=== PATIENT | female | born 2000 | race Caucasian/White ===

== ENCOUNTER 2023-03-15 19:34 | Emergency (ER) | payer BC, SELFPAY ==
--- NOTE | ~2023-03-15 | XR_ITS ---
EXAM: XR abdomen/kub 1V DATE: 03/15/2023 20:09 HISTORY: nausea, bloating, fatique x 1 month urinary frequency . COMPARISON: None available. FINDINGS: Clear lung bases. Normal bowel gas pattern. No organomegaly. No abnormal abdominal calcifi cation. Regional bones and soft tissues normal for age. IMPRESSION: Normal abdominal radiograph findings. Reviewed, dictated and finalized at location K.
[2023-03-15 19:40] VITALS: BP 129/78; PULSE 108; RESP 16; TEMP 36.6; O2SAT 99
--- NOTE | 2023-03-15 19:53 | ED.GENADULT ---
HPI - General Adult General Chief complaint: Nausea/Vomiting/Diarrhea Stated complaint: nausea fatigue Time Seen by Provider: 03/15/23 19:53 Source: patient Mode of arrival: ambulatory Limitations: no limitations History of Present Illness HPI narrative: 22-year-old female presents with complaint of fatigue, intermittent nausea, abdominal bloating after eating. Symptoms for approximately 1 month. States all foods make her feel bloated. Has not tried any sdya-hvw-fljovhz medications to treat bloating. Denies urinary complaints. Having normal bowel movements. No blood in stools. Having normal periods. Concern for . Patient does not have a primary care physician. Was hoping that she could get a medication prescribed to treat the nausea. 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 States she drinks 6 to 8 shots of espresso daily to keep her awake. pt has decreased food intake due to nausea. no significant weight loss. All systems reviewed and negative except as noted above. Related Data Allergies Allergy/AdvReac Type Severity Reaction Status Date / Time Penicillins Allergy Unknown Verified 03/15/23 19:56 Review of Systems Review of Systems: CONSTITUTIONAL: Denies fever, chills, or sweats. Reports fatigue. EYES: Denies visual changes, redness, or discharge. ENT: Denies rhinorrhea, congestion, sore throat, or otalgia. CARDIOVASCULAR: Denies chest pain, palpitations, or edema. RESPIRATORY: Denies cough or dyspnea. GASTROINTESTINAL: Denies abdominal pain, vomiting, or diarrhea. Reports abdominal bloating, nausea. GENITOURINARY: Denies dysuria or hematuria. SKIN: Denies rash or itching. MUSCULOSKELETAL: Denies back pain, joint pain, or myalgia. NEUROLOGIC: Denies headache, numbness, or weakness. PSYCHIATRIC: Denies anxiety or depression. All other systems reviewed are negative, except as documented in HPI. PMFSH Comments At time of signature, agree with nursing past medical, surgical, social and family history. There is no relevant family history pertinent to the presenting complaint. Exam Narrative: GENERAL: This is a well-nourished, well-developed patient, in no apparent distress. HEAD: normocephalic, atraumatic. EYES: PERRL. Sclera clear/white. Vision is grossly intact. EARS: External ears normal NOSE: External nose normal NECK: Neck supple, non-tender without lymphadenopathy, masses or thyromegaly. CARDIOVASCULAR: Regular rate and rhythm without murmurs, gallops, or rubs. RESPIRATORY: Clear to auscultation. Breath sounds equal bilaterally. No wheezes, rales, or rhonchi. GASTROINTESTINAL: Abdomen soft, non-tender, nondistended. Bowel sounds are active. No hepato-splenomegaly, or palpable masses. No guarding. SKIN: warm, Dry, intact with no suspicious lesions or rash, good texture and turgor. NEURO: awake, alert, and oriented to person, place and time. There were no obvious focal neurologic abnormalities. EXTREMITIES: No joint tenderness, effusion, or edema noted. BACK: No CVA tenderness. Course Course Level of Care: Express Care Visit Vital Signs Vital signs: Vital Signs Temperature 36.6 C 03/15/23 19:40 Pulse Rate 108 H 03/15/23 19:40 Respiratory Rate 16 03/15/23 19:40 Blood Pressure 129/78 03/15/23 19:40 Pulse Oximetry 99 03/15/23 19:40 Oxygen Delivery Room Air 03/15/23 19:40 Temperature 36.6 C 03/15/23 19:40 Pulse Rate 108 H 03/15/23 19:40 Respiratory Rate 16 03/15/23 19:40 Blood Pressure 129/78 03/15/23 19:40 Pulse Oximetry 99 03/15/23 19:40 Oxygen Delivery Room Air 03/15/23 19:40 Reviewed Medical Decision Making MDM Narrative Medical decision making narrative: Patient is aware of diagnosis, understands and agrees to treatment plan. Anticipatory guidance given. Patient agrees to follow-up as directed and is aware of reasons to seek care at the emergency department. Portions of this record may have been created with voice recognition software discussed
[2023-03-15 20:18] LABS: Glucose Point of Care 90 mg/dl (65-105)
== END 2023-03-15 20:40 | disposition home or self-care (01) ==
PROVIDERS: Emergency Provider Nurse Practitioner Family
DX: R14.0 Abdominal distension (gaseous) (principal); N39.0 Urinary tract infection, site not specified
CPT/HCPCS: 74018; 81003; 81025; 82948; 87086; 87088; 99213; G0463

== ENCOUNTER 2024-10-20 10:43 | Emergency (ER) | payer BC, SELFPAY ==
[2024-10-20 11:02] VITALS: BP 128/68; PULSE 106; RESP 16; TEMP 36.6; O2SAT 98
--- NOTE | 2024-10-20 11:03 | ED_ITS ---
HPI - URI/Sore Throat General Chief Complaint: Upper Respiratory Infection Stated Complaint: Poss [place] eye/Sore throat Time Seen by Provider: 10/20/24 11:23 Source: patient and RN notes reviewed Mode of arrival: ambulatory Limitations: no limitations History of Present Illness HPI Narrative: 24-year-old female presents with concern one-week history of sore throat sinus congestion drainage ear pain. Reports she is was inserted drainage the eyes. She denies fevers. Denies drainage from ears MD elicited complaint: sore throat and nasal congestion Related Data Home Medications ?Medication ?Instructions ?Recorded ?Confirmed ?Last Taken ?Type escitalopram oxalate 5 mg tablet mg 10/20/24 Unknown History omeprazole .ROUTE 10/20/24 Unknown History Allergies Allergy/AdvReac Type Severity Reaction Status Date / Time amoxicillin Allergy Unknown Unknown Verified 10/20/24 11:07 Penicillins Allergy Unknown Verified 10/20/24 11:07 Review of Systems Review of Systems: CONSTITUTIONAL: Denies malaise, chills, sweats, or fever. EYES: Denies visual changes, redness. Reports bilateral discharge. ENT: Reports rhinorrhea, congestion, sinus pain, otalgia and sore throat. CARDIOVASCULAR: Denies chest pain, palpitations, or edema. RESPIRATORY: Reports cough. Denies dyspnea. GASTROINTESTINAL: Denies abdominal pain, nausea, vomiting, diarrhea SKIN: Denies rash or itching. MUSCULOSKELETAL: Denies myalgia. NEUROLOGIC: Denies headache. All systems reviewed & are unremarkable except as noted in HPI and below PMFSH Comments At time of signature, agree with nursing past medical, surgical, social and family history. There is no relevant family history pertinent to the presenting complaint Exam Narrative: GENERAL: Well-appearing, well-nourished, and in no acute distress. HEAD: Normocephalic EYES: PERRLA, conjunctivae clear ENT: Nares clear, turbinates edematous and erythematous. Mucous membranes moist. TM pearly san with dull light reflex bilaterally, right TM bulging; no tragal tenderness. Oropharynx not erythematous without lesions. Tonsils not enlarged and without exudate, no drooling, no hoarseness, no trismus, uvula midline. NECK: Supple. No lymphadenopathy CHEST: Clear to auscultation, breath sounds equal. No wheezing, rhonchi, rales, or stridor. No respiratory distress, speaks in full sentences. HEART: Regular rate and rhythm. No murmur heard. SKIN: Warm, dry, no rash. NEURO: Alert and oriented x3. PSYCH: Normal mood and affect Course Course Emergency Course: Patient is aware of diagnosis, understands and agrees to treatment plan. Anticipatory guidance given. Patient agrees to follow-up as directed and is aware of reasons to seek care at the emergency department. Portions of this record may have been created with voice recognition software Level of Care: Express Care Visit Vital Signs Vital signs: Reviewed. MDM - URI/Sore Throat MDM Narrative Medical decision making narrative: Differential diagnosis considered: Martinez virus, strep pharyngitis, allergic rhinitis, upper respiratory tract infection, sinusitis, rhinosinusitis, nasopharyngitis. viral pharyngitis, otitis media, otitis externa, pneumonia, bronchitis, viral cough syndrome, viral syndrome, and influenza. Exam findings show no acute concerns or changes; patient is non-toxic appearing and is in no distress. Patient is appropriate for outpatient treatment and follow-up. Lab Data Attestation: I reviewed the patient's lab results. Critical Care Time Critical Care Time Critical Care Time: No Discharge Plan Discharge Clinical Impression: Sinusitis Patient Disposition: Home, Self-Care Condition: Stable Instructions: Antibiotic Form, Sinusitis (ED) Additional Instructions: Take medication as prescribed Nonprescription pain medications, such as acetaminophen (eg, Tylenol) or ibuprofen (eg, Motrin, Advil), are recommended for pain. Flushing the nose and sinuses with a saline solution several times per day has been proven to decrease pain associated with congestion and shorten the duration of symptoms. Nasal steroids (such as Flonase, 2 sprays in each nostril daily) can help to re duce swelling inside the nose, usually within two to three days. These drugs have few side effects and relieve symptoms in most people. Oral decongestants (pseudoephedrine and phenylephrine) may be helpful if you have associated symptoms of ear pain or fullness. Nasal decongestant sprays, including oxymetazoline (Afrin) and phenylephrine (Chaparro-Synephrine), can be used to temporarily treat congestion. However, these sprays should not be used for more than two to three days due to the risk of rebound congestion (when the nose becomes congested constantly unless the medication is used repeatedly), possible addiction, and long-term consequences of frequent use, including persistent nasal dryness and crusting, which is very difficult to treat once it has developed. Medications to thin secretions (such as guaifenesin) may help to clear mucus. Please follow-up with your primary care doctor in the next 1-2 days. If you cannot follow-up with your primary care doctor please go to the ED for any urgent issues. If you have any worsening of symptoms or any other concerns please go to the ED immediately. Patient Language: Argentine Prescriptions: New pseudoephedrine HCl [12 Hour Decongestant] 120 mg tablet extended release 120 mg PO Q12H PRN (Reason: nasal congestion) Qty: 20 0RF doxycycline monohydrate 100 mg tablet 100 mg PO BID 7 Days Qty: 14 0RF No Action escitalopram oxalate 5 mg tablet omeprazole .ROUTE Follow-up/Referrals: Ottoniel,Soheila Elder MD [Primary Care Provider] - Time of Disposition: 11:32
[2024-10-20 11:21] LABS: EDSTREPNEGPOS1 Negative (Negative)
--- OUTSIDE RECORDS SUMMARY | 2024-10-20 12:39 | XMS_ITS | Clinical Summary ---
Author Organization [facility] Address [address] [place] [address] Care Team Providers Care Game Trapper Name Role Phone Unavailable Primary Care Provider Unavailabl e Source Comments [facility],non-owned Affiliates and Associated Physician Practices is amultiple site organization consisting of ambulatory clinics and hospital sitesin [place], [place], [place] and [place]. This disclosure is being madepursuant to the Care Everywhere program and may not contain all information available regarding this patient. Last updated 18.[facility] Social History Tobacco Use Types Packs/Day Years Used Date Smoking Tobacco: Never Assessed Sex and Gender Information Value Date Recorded Sex Assigned at Not on file Gender Identity Not on file Sexual Orientation Not on file Plan of Treatment Health Maintenance Due Date Last Done Comments PAP SMEAR 2002 HIV SCREENING 2017 HPV VACCINE (1 - 3-dose series) 2017 CHLAMYDIA/GONORRHEA SCREENING 2018 MENINGOCOCCAL (Group B) VACC INE (1 of 2 - Standard) 2018 HEPATITIS C SCREENING 04/13/2020 DTAP/TDAP/TD VACCINES (1 - Tdap) 2021 HEPATITIS B VACCINE (1 of 3 - 19+ 3-dose series) 2021 COVID-19 VACCINE (1 - 2023-2 5 season) 2024 INFLUENZA VACCINE (#1) 2024 DEPRESSION SCREENING 08/27/2024 ZOSTER VACCINE (1 of 2) 2052 HIB VACCINE Aged Out No longer eligi ble based on patient's age to complete this topic MENINGOCOCCAL VACCINE Aged Out No nelsy frances eligible based on patient's age to complete this topic PNEUMOCOCCAL VACCINE Aged Out No long er eligible based on patient's age to complete this topic
--- OUTSIDE RECORDS SUMMARY | 2024-10-20 12:39 | XMS_ITS | Clinical Summary ---
Author Organization [facility] Address [address] [address] Phone Care Team Providers Care Digital Advertising Specialist Name Role Phone Soheila Alcazar MD Primary Care Provider [phone] Ghaazl Montanez APRN, FRESH WORK INSPECTOR Unavailable Allergies Active Allergy Reactions Criticality Noted Date Comments Penicillins Unknown 08/29/2023 Medications ergocalciferol (VITAMIN D) 79028 UNIT Capsule TAKE 1 CAPSULE BY MOUTH EVERY WEEK 3 Active ondansetron (ZOFRAN-ODT) 4 MG TABLET DISPERSIBLE DISSOLVE 1 TABLET ON THE TONGUE EVERY 8 HOURS NEEDED FOR NAUSEA OR VOMITING 3 Active omeprazole (PriLOSEC) 20 MG CAPSULE DELAYED RELEASE Take 20 mg by mouth daily. Active sucralfate (CARAFATE) 1 GM TabletIndication s:Epigastric pain,Nausea Take 1 Tablet by mouth every 6 hours. 120 Tablet 4 Active Additional Information Patient not taking.Reported on 09/11/2023 Escitalopram Oxalate (Lexapro) 5 MG Tablet Take 5 mg by mouth daily. Active Active Problems Problem Noted Date Diagnosed Date Adjustment disorder with mixed anxiety and depre ssed mood 09/23/2024 Encounters Date Type Department Care Team Description 10/09/2024 10:00 AM EPIDEMIOLOGY INVESTIGATOR [facility] [address] [place] [address] Heidi Blackwood LCPC Adjustment disorder with mixed anxiety and depressed mood (Primary Dx) Discharge Disposition: Discharged to home or Selfcare 10/09/2024 Travel 09/23/2024 9:00 AM EPIDEMIOLOGY INVESTIGATOR Outpatient Clinic Visit [facility] [address] [place] [address] Heidi Blackwood LCPC Adjustment disorder with mixed anxiety and depressed mood (Primary Dx) Discharge Disposition: Discharged to home or Selfcare 09/23/2024 Travel from Last 3 Months Family History Medical History Relation Name Comments Anxiety disorder Brother 1 Depression Brother 2 Suicide Attempts Brother 2 Drug Abuse Father Hypertension Father Bipolar Disorder Mother Anxiety disorder Sister 1 Depression Sister 1 Relation Name Status Comments Brother 1 Alive Brother 2 Father Alive Mother Alive Sister 1 Alive Sister 2 Alive Social History Tobacco Use Types Packs/Day Years Used Date Smoking Tobacco: Every Day Cigarettes 0.3 1 Smokeless Tobacco: Never Tobacco Cessation:Ready to Q uit: Not Asked; Counseling Given: Not Answered Alcohol Use Standard Drinks/Week Comments Yes 4 (1 standard drink = 0.6 oz pur e alcohol) 1-2 times per week Sexually Active Control Partners Comments Not Currently Comments Unknown Sex and Gender Information Value Date Recorded Sex Assigned at Not on file Legal Sex Female 5:42 PM CDT Gender Identity Not on file Sexual Orientation Not on file Last Filed Vital Signs Vital Sign Reading Time Taken Comments Blood Pressure 111/75 09/11/2023 12:05 PM EPIDEMIOLOGY INVESTIGATOR Pulse 70 09/11/2023 12:05 PM EPIDEMIOLOGY INVESTIGATOR Temperature 36 C (96.8 F) 09/11/2023 12:05 PM EPIDEMIOLOGY INVESTIGATOR Respiratory Rate 16 09/11/2023 12:05 PM EPIDEMIOLOGY INVESTIGATOR Oxygen Saturation 100% 09/11/2023 12:05 PM EPIDEMIOLOGY INVESTIGATOR Inhaled Oxygen Concentration - - Weight 58.5 kg (129 lb) 08/29/2023 1:30 PM EPIDEMIOLOGY INVESTIGATOR Height 167.6 cm (5' 6 ) 08/29/2023 1:30 PM EPIDEMIOLOGY INVESTIGATOR Body Mass Index 20.82 08/29/2023 1:30 PM EPIDEMIOLOGY INVESTIGATOR Plan of Treatment Upcoming Encounters Date Type Department Care Team (Latest Contact Info) Description 10/29/2024 10:00 AM EPIDEMIOLOGY INVESTIGATOR [facility] [address] [place] [id number] Heidi Blackwood [facility] [address] [place] [address] Discharge Disposition: Discharged to home or Selfcare 11/12/2024 10:00 AM CDT Outpatient Clinic Visit [facility] [address] [place] [address] Heidi Blackwood [facility] [address] [place] [address] Health Maintenance Due Date Last Done Comments Hepatitis C Virus (HCV) Screening 2002 Human Papillomavirus (HPV) Immunization (2 - 3-dose series) 03/10/2019 02/10/2019 Meningococcal B Immunization (2 of 2 - Bexsero SCDM 2-dose series) 08/12/2019 02/10/2019 Pneumococcal Immunization Combined (1 of 2 - PCV) 2021 Pap Smear 2023 Influenza Immunization (#1) 2024 08/22/2022 SARS-COV-2 Immunization ( - season) 2024 09/04/2021, 12/16/2020, 11/23/2020 Respiratory Syncytial Virus (RSV) Immunization (Adult) (1 - 1-dose 75+ series) 2077 Hepatitis B Immunization Completed 004, 2002, 2002 Meningococcal Immunization (ACWY) Completed 02/10/2019, 01/28/2013 DTaP/Tdap/Td Immunization Discontinued 2022, 01/28/2013, 01/15/2007, Additional history exists TdaP Immunization Completed 04/14/2023, 01/28/2013 Rotavirus Immunization Aged Out No lo nger eligible based on patient's age to complete this topic Goals Goal Patient Goal Type Associated Problems Recent Progress Patient-Stated? Author I want to learn to open up more Behavioral Health On track( 025 10:50 AM EPIDEMIOLOGY INVESTIGATOR) Heidi Garcia, [facility] Note: Goal/Objective: Increase ability to open up to others. Anticipated Time Frame for Goal Completion: 6 months Goal Reviewed with: patient Readiness to change: Ready to change Department associated with goal: [facility] Steps to achieve goal: will identify at least two coping skills/activities/habits that have helped to manage anxiety in the past. will identify at least three new coping skills/activities/habits that may help to prevent and/or cope with anxiety. 3. will identify a plan to implement coping skills and follow this plan for two weeks and evaluate the impact on anxiety 4. Will attend individual and/or group therapy at least 1x/month at least 6 sessions Insurance [place] [id number] Care Teams Digital Advertising Specialist Relationship Specialty Start Date End Date Soheila Alcazar MD [address] [place] [address] PCP - General Family Medicine 08/21/23 Ghazal Montanez APRN, FRESH WORK INSPECTOR [address] [place] [address] Nurse Practitioner Advanced Practice Nurse 08/29/23
--- OUTSIDE RECORDS SUMMARY | 2024-10-20 12:39 | XMS_ITS | Patient Health Summary ---
Author Organization [facility] Address [address] [place] [address] Care Team Providers Care Chemist Proteins Name Role Phone Unavailable Primary Care Provider Unavailabl e Note from [facility],non-owned Affiliates and Associated Physician Practices is amultiple site organization consisting of ambulatory clinics and hospital sitesin [place], [place], [place] and [place]. This disclosure is being madepursuant to the Care Everywhere program and may not contain all information available regarding this patient. Last updated 18.[facility] Social History Tobacco Use Types Packs/Day Years Used Date Smoking Tobacco: Never Assessed Sex and Gender Information Value Date Recorded Sex Assigned at Not on file Gender Identity Not on file Sexual Orientation Not on file
--- OUTSIDE RECORDS SUMMARY | 2024-10-20 12:39 | XMS_ITS | Referral Summary ---
Author Organization [facility] Address [address] [place] [address] Care Team Providers Care Concrete Handler Name Role Phone Unavailable Primary Care Provider Unavailabl e Source Comments [facility],non-owned Affiliates and Associated Physician Practices is amultiple site organization consisting of ambulatory clinics and hospital sitesin [place], [place], [place] and [place]. This disclosure is being madepursuant to the Care Everywhere program and may not contain all information available regarding this patient. Last updated 18.[facility] Social History Tobacco Use Types Packs/Day Years Used Date Smoking Tobacco: Never Assessed Sex and Gender Information Value Date Recorded Sex Assigned at Not on file Gender Identity Not on file Sexual Orientation Not on file Plan of Treatment Not on file
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
== END 2024-10-20 11:36 | disposition home or self-care (01) ==
PROVIDERS: Emergency Provider Nurse Practitioner; PCP Family Medicine
DX: J32.9 Chronic sinusitis, unspecified (principal); K21.9 Gastro-esophageal reflux disease without esophagitis
CPT/HCPCS: 87081; 87880; 99213; G0463

== ENCOUNTER 2025-04-03 11:58 | Emergency (ER) | payer BC, SELFPAY ==
--- OUTSIDE RECORDS SUMMARY | 2025-04-03 12:00 | XMS_ITS | Clinical Summary ---
Author Organization [facility] Address [address] [facility] [address] [place] [address] Phone Care Team Providers Care Hospital Secretary Name Role Phone Soheila Alcazar MD Primary Care Provider [phone] Ghazal Montanez APRN, STAFF DEVELOPMENT EDUCATOR Unavailable Allergies Active Allergy Reactions Criticality Noted Date Comments Penicillins Unknown 08/29/2023 Medications ergocalciferol (VITAMIN D) 42138 UNIT Capsule TAKE 1 CAPSULE BY MOUTH [...] Active Problems Problem Noted Date Diagnosed Date MDD (major depressive disord er), recurrent episode, moderate 03/26/2025 CAMRYN (generalized anxiety disorder) 12/25/2024 Adjustment disorder with mixed anxiety and depre ssed mood 09/23/2024 Encounters Date Type Department Care Team Description 03/26/2025 2:00 PM CDT Outpatient Clinic Visit [facility] [address] [place] [address] Heidi Blackwood, PREFLIGHT MECHANIC MDD (major depressive disorder), recurrent episode, moderate (HCC) (Primary Dx); CAMRYN (generalized anxiety disorder) Discharge Disposition: Discharged to home or Selfcare 03/26/2025 Travel 03/11/2025 10:00 AM CDT Outpatient Clinic Visit [facility] [address] [facility] [address] [place] [address] Heidi Blackwood, PREFLIGHT MECHANIC Trauma and stressor-related disorder (Primary Dx); CAMRYN (generalized anxiety disorder) Discharge Disposition: Discharged to home or Selfcare 03/11/2025 Travel 02/25/2025 10:00 AM CDT Outpatient Clinic Visit [facility] [address] [facility] [place] [address] Heidi Blackwood PREFLIGHT MECHANIC Trauma and stressor-related disorder (Primary Dx); CAMRYN (generalized anxiety disorder) Discharge Disposition: Discharged to home or Selfcare 02/25/2025 Travel 02/11/2025 10:15 AM CDT Outpatient Clinic Visit [facility] [address] [facility] [place] [address] Heidi Blackwood, PREFLIGHT MECHANIC Trauma and stressor-related disorder (Primary Dx); CAMRYN (generalized anxiety disorder) Discharge Disposition: Discharged to home or Selfcare 02/11/2025 Travel 01/28/2025 10:00 AM CDT Outpatient Clinic Visit [facility] [address] [place] [address] Heidi Blackwood PREFLIGHT MECHANIC CAMRYN (generalized anxiety disorder) (Primary Dx) Discharge Disposition: Discharged to home or Selfcare 01/28/2025 Travel 01/14/2025 10:00 AM CDT [facility] [address] [place] [address] Heidi Blackwood LCPC CAMRYN (generalized anxiety disorder) (Primary Dx) Discharge Disposition: Discharged to home or Selfcare 01/14/2025 Travel from Last 3 Months Family History [...] Sexually Active Control Partners Comments Not Currently Female Comments Unknown Sex and Gender Information Value Date Recorded Sex Assigned at Not on file Legal Sex Female 5:42 PM CDT Gender Identity Not on file Sexual Orientation Not on file Last Filed Vital Signs Vital Sign Reading Time Taken Comments Blood Pressure 111/75 09/11/2023 12:05 PM MEDICAL VAN DRIVER Pulse 70 09/11/2023 12:05 PM MEDICAL VAN DRIVER Temperature 36 C (96.8 F) 09/11/2023 12:05 PM MEDICAL VAN DRIVER Respiratory Rate 16 09/11/2023 12:05 PM MEDICAL VAN DRIVER Oxygen Saturation 100% 09/11/2023 12:05 PM MEDICAL VAN DRIVER Inhaled Oxygen Concentration - - Weight 58.5 kg (129 lb) 08/29/2023 1:30 PM MEDICAL VAN DRIVER Height 167.6 cm (5' 6) 08/29/2023 1:30 PM MEDICAL VAN DRIVER Body Mass Index 20.82 08/29/2023 1:30 PM MEDICAL VAN DRIVER Plan of Treatment Upcoming Encounters Date Type Department Care Team (Latest Contact Info) Description 04/08/2025 10:00 AM CDT Outpatient Clinic Visit [facility] [address] [place] [address] Heidi Blackwood LCPC [address] [place] [address] Discharge Disposition: Discharged to home or Selfcare 04/22/2025 10:00 AM CDT Outpatient Clinic Visit [facility] [address] [facility] [place] [address] Heidi Blackwood LC[facility] [address] [facility] [place] [address] Discharge Disposition: Discharged to home or Selfcare Health Maintenance Due Date Last Done Comments Hepatitis C Virus (HCV) Screening 2002 Human Papillomavirus (HPV) Immunization (2 - 3-dose series) 03/10/2019 02/10/2019 Meningococcal B Immunization (2 of 2 - Bexsero SCDM 2-dose series) 08/12/2019 02/10/2019 Pneumococcal Immunization Combined (1 of 2 - PCV) 2021 Pap Smear 2023 SARS-COV-2 Immunization ( season) 2024 09/04/2021, 12/16/2020, 11/23/2020 Influenza Immunization (#1) 2025 08/22/2022 Respiratory Syncytial Virus (RSV) Immunization (Adult) (1 [...] up more Behavioral Health On track( 025 2:59 PM CDT) No Heidi Blackwood LCPC Note: Goal/Objective: Increase ability to open up to others. Anticipated Time Frame for Goal Completion: 6 months Goal Reviewed with: patient Readiness to change: Ready to change Department associated with goal: [facility] Steps to achieve goal: [...] 6 sessions [place] Care Teams Hospital Secretary Relationship Specialty Start Date End Date Soheila Alcazar MD [address] [place] [address] PCP - General Family Medicine 08/21/23 Ghazal Montanez APRN, STAFF DEVELOPMENT EDUCATOR [address] [place] [address] Nurse Practitioner Advanced Practice Nurse 08/29/23
--- OUTSIDE RECORDS SUMMARY | 2025-04-03 12:00 | XMS_ITS | Clinical Summary ---
Author Organization [facility] Address [address] [place] [address] Care Team Providers Care Sales Representative Printing Name Role Phone Unavailable Primary Care Provider Unavailabl e Source Comments [facility],non-owned Affiliates and Associated Physician Practices is amultiple site organization consisting of ambulatory clinics and hospital sitesin [place], [place], [place] and [place]. This disclosure is being madepursuant to the Care Everywhere program and may not contain all information available regarding this patient. Last updated 18.[facility] Social History Tobacco Use Types Packs/Day Years Used Date Smoking Tobacco: Never Assessed Comments Unknown Sex and Gender Information Value Date Recorded Sex Assigned at Not on file Legal Sex Female 12:02 PM MARKETING PROPOSAL COORDINATOR Gender Identity Not on file Sexual Orientation Not on file Plan of Treatment Health Maintenance Due Date Last Done Comments HIV SCREENING 2017 HPV VACCINE (1 - 3-dose series) 2017 CHLAMYDIA/GONORRHEA SCREENING 2018 MENINGOCOCCAL (Group B) VACC INE SHARED DECISION-MAKING (1 of 2 - Standard) 2018 HEPATITIS C SCREENING 04/13/2020 DTAP/TDAP/TD VACCINES (1 - Tdap) 2021 HEPATITIS B VACCINE (1 of 3 - 19+ 3-dose series) 2021 PAP SMEAR 2023 COVID-19 VACCINE (1 - 2023-2 5 season) 2024 DEPRESSION SCREENING 08/27/2024 INFLUENZA VACCINE (#1) 2025 ZOSTER VACCINE (1 of 2) 2052 HIB VACCINE Aged Out No longer eligi ble based on patient's age to complete this topic MENINGOCOCCAL GROUPS A/C/Y/W VACCINE Aged Out No longer eligible b ased on patient's age to complete this topic PNEUMOCOCCAL VACCINE Aged Out No long er eligible based on patient's age to complete this topic Insurance [facility] MEDICAID
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
[2025-04-03 12:09] VITALS: BP 109/60; PULSE 87; RESP 16; TEMP 36.6; O2SAT 99
--- NOTE | 2025-04-03 12:09 | ED_ITS ---
HPI - Female Genitourinary General Chief complaint: Urogenital-Female Stated complaint: Urinary Problem Time Seen by Provider: 04/03/25 12:09 Source: patient Mode of arrival: ambulatory Limitations: no limitations History of Present Illness HPI Narrative: 24-year-old female presents with complaint of urinary frequency, urgency, stinging with urination for 2-3 days. Afebrile. No concern for . Denies nausea vomiting. All Systems reviewed and negative except as noted above. Related Data Home Medications ?Medication ?Instructions ?Recorded ?Confirmed ?Last Taken ?Type escitalopram oxalate 5 mg tablet mg 10/20/24 Unknown History omeprazole .ROUTE 10/20/24 Unknown History Allergies Allergy/AdvReac Type Severity Reaction Status Date / Time amoxicillin Allergy Unknown Unknown Verified 04/03/25 11:59 Penicillins Allergy Unknown Verified 04/03/25 11:59 PMFSH Comments At time of signature, agree with nursing past medical, surgical, social and family history. There is no relevant family history pertinent to the presenting complaint. Exam Narrative: GENERAL: This is a well-nourished, well-developed patient, in no apparent d istress. HEAD: normocephalic, atraumatic. EYES: PERRL. Sclera clear/white. Vision is grossly intact. EARS: External ears normal NOSE: External nose normal NECK: Neck supple, non-tender without lymphadenopathy, masses or thyromegaly. CARDIOVASCULAR: Regular rate and rhythm without murmurs, gallops, or rubs. RESPIRATORY: Clear to auscultation. Breath sounds equal bilaterally. No wheezes, rales, or rhonchi. SKIN: warm, Dry, intact with no suspicious lesions or rash, good texture and turgor. NEURO: awake, alert, and oriented to person, place and time. There were no obvious focal neurologic abnormalities. EXTREMITIES: No joint tenderness, effusion, or edema noted. Course Course Level of Care: Express Care Visit Vital Signs Vital signs: Vital Signs Temperature 36.6 C 04/03/25 12:09 Pulse Rate 87 04/03/25 12:09 Respiratory Rate 16 04/03/25 12:09 Blood Pressure 109/60 04/03/25 12:09 Pulse Oximetry 99 04/03/25 12:09 Oxygen Delivery Room Air 04/03/25 12:09 Temperature 36.6 C 04/03/25 12:09 Pulse Rate 87 04/03/25 12:09 Respiratory Rate 16 04/03/25 12:09 Blood Pressure 109/60 04/03/25 12:09 Pulse Oximetry 99 04/03/25 12:09 Oxygen Delivery Room Air 04/03/25 12:09 reviewed MDM - Female Genitourinary MDM Narrative Medical decision making narrative: urinalysis 1+ leukocytes. Urine culture ordered. Patient is well-appearing, nontoxic. Will treat patient with antibiotic due to urinary symptoms. Differential Diagnosis Differential diagnosis: Likely urinary tract infection Lab Data Labs: Lab Results 04/03/25 Range/Units 12:13 POC Urine Color Yellow POC Urine Clarity Clear POC Urine pH 7.0 POC Ur Specif [place] 1.010 POC Urine Protein Negative (Negative) POC Ur Glucose (UA) Negative (Negative) POC Urine Ketones Negative (Negative) POC Urine Blood Negative (Negative) POC Urine Nitrite Negative (Negative) POC Urine Bilirubin Negative (Negative) POC Urine Urobilinogen 0.2 POC U Leukocyte Esteras 1+ (Negative) Discharge Plan Discharge Clinical Impression: Urinary tract infection Patient Disposition: Home Condition: Stable Instructions: Antibiotic Form, Urinary Tract Infection in Women (ED) Additional Instructions: take antibiotic as prescribed until gone. Take Tylenol or ibuprofen every 6-8 hours as needed for pain. Drink at least 64 oz of water a day. See your doctor symptoms are not improving. Patient Language: French Prescriptions: New sulfamethoxazole-trimethoprim [Bactrim DS] 800-160 mg tablet 1 tablet PO Q12H 3 Days Qty: 6 0RF No Action escitalopram oxalate 5 mg tablet omeprazole .ROUTE Follow-up/Referrals: Jennifer,Soheila Elder MD [Primary Care Provider] - Time of Disposition: 12:20
[2025-04-03 12:15] LABS: EDUAAPPEAR Clear; EDUABILI Negative (Negative); EDUABLOOD Negative (Negative); EDUACOLOR1 Yellow; EDUAGLUCOSE Negative (Negative); EDUAKETONE Negative (Negative); EDUALEUKO 1+ (Negative); EDUANITRATE Negative (Negative); EDUAPH 7.0; EDUAPROTEIN Negative (Negative); EDUASPGRAVITY 1.010; EDUAUROBILI 0.2
== END 2025-04-03 12:21 | disposition home or self-care (01) ==
PROVIDERS: Emergency Provider Nurse Practitioner Family; PCP Family Medicine
DX: N39.0 Urinary tract infection, site not specified (principal); F41.9 Anxiety disorder, unspecified; F32.A Depression, unspecified; K21.9 Gastro-esophageal reflux disease without esophagitis
CPT/HCPCS: 81003; 87086; 99213; G0463